=== PATIENT | male | born 1950 | race African-American/Black ===

== ENCOUNTER 2017-09-19 18:50 | Emergency (ER) | payer OTHER, MEDICAID ==
[~2017-09-19] VITALS: Ht 185.4 cm; Wt 125.0 kg
[~2017-09-19 18:50] MED LIST: AMLO10 PO; ASPI325T PO; BACT800T5 PO; Cyclobenzaprine Hcl PO; HYDR-2768 PO; LISI-366 PO; LORA-392 PO; PRAV20 PO
[2017-09-19 18:52] VITALS: BP 169/86; PULSE 97; RESP 16; TEMP 98.4; O2SAT 97
[2017-09-19] MEDS ORDERED: LISI40TA PO (19:44)
[2017-09-19] MEDS ORDERED: SIMV40TA PO (19:44)
[2017-09-19] MEDS ORDERED: AMLO10 PO (19:44)
[2017-09-19] MEDS ORDERED: ASPI-183 PO (19:44)
[2017-09-19] MEDS ORDERED: METF1000 PO (19:44)
--- NOTE | 2017-09-19 19:46 | RADRPT ---
EXAM DATE/TIME: 09/19/2017 19:31 [place] COMPARISON: No previous studies available for comparison. INDICATIONS : Shortness of breath. MEDICAL HISTORY : Myocardial infarction. SURGICAL HISTORY : None. ENCOUNTER: Initial ACUITY: 2 days PAIN SCORE: 0/10 LOCATION: chest FINDINGS: Portable AP view the chest demonstrates a normal-sized cardiac silhouette with tortuous descending th oracic aorta. No pleural effusion, airspace consolidation, or pneumothorax is identified. Bones and s oft tissues demonstrate no acute finding. EKG lines overlie the patient. CONCLUSION: No acute cardiopulmonary abnormality is identified. Ata James MD on September 19, 2017 at 19:43 Board Certified Radiologist. This report was verified electronically.
--- NOTE | 2017-09-19 19:59 | PD ---
HPI Chief Complaint: Respiratory Distress Time Seen by Provider: 19:47 Travel History International Travel<30 days: No Contact w/Intl Traveler<30days: No Traveled to known affect area: No History of Present Illness HPI 67-year-old male complains chest discomfort and shortness of breath. Patient states that the symptoms started 2 days ago. Patient states that the chest discomfort is pressure pain across the anterior chest. Patient denies any pain radiation. Patient denies palpitation nausea or diaphoresis. Patient denies any coughing congestion fever chills. Patient states that the chest discomfort is not associated with exertion. Patient has history of ND in 1999. Status post CVA 2013. Patient has history hypertension, diabetes, hyperlipidemia. Patient quit smoking in 2013. Patient has family history of heart disease. Patient states that he takes aspirin 325 mg every 2-3 days. Last aspirin was yesterday. On a scale of 1-10 chest pain is a 4. PFSH Past Medical History Arthritis: No Autoimmune Disease: No Anxiety: Yes Depression: No Heart Rhythm Problems: No Cancer: No Cardiac Catheterization: Yes (1999) Cardiovascular Problems: Yes High Cholesterol: No Chest Pain: Yes (HEART ATTACK IN 1999) Congestive Heart Failure: Yes Cerebrovascular Accident: Yes (2013) Diabetes: Yes (PT STATES BORDERLINE POSSIBLE) Patient Takes Glucophage: Yes Diminished Hearing: No Endocrine: No Genitourinary: No Headaches: Yes (LATELY) Hypertension: Yes Immune Disorder: No Musculoskeletal: No Neurologic: Yes Psychiatric: Yes Reproductive: No Respiratory: No Migraines: No Myocardial Infarction: Yes (1999) Seizures: No Past Surgical History Abdominal Surgery: No Coronary Artery Bypass Graft: No Ear Surgery: No Endocrine Surgery: No Eye Surgery: No Genitourinary Surgery: No Gynecologic Surgery: No Oral Surgery: No Thoracic Surgery: No Other Surgery: Yes Social History Alcohol Use: Yes (WINE OCC) Tobacco Use: Yes (PT STS 2 BLACK AND MILDS PER DAY/PIPE) Substance Use: No Allergies-Medications (Allergen,Severity, Reaction): Coded Allergies: No Known Allergies (Verified Adverse Reaction, Unknown, 09/19/17) Reported Meds & Prescriptions Reported Meds & Active Scripts Active Reported Metformin (Metformin HCl) 1,000 Mg Tab 1,000 Mg PO BIDPC Simvastatin 40 Mg Tab 40 Mg PO HS Lisinopril 40 Mg Tab 40 Mg PO DAILY Aspirin 325 Mg Tab 325 Mg PO EVERY OTHER DAY Norvasc (Amlodipine Besylate) 10 Mg Tab 10 Mg PO DAILY Review of Systems General / Constitutional: No: Fever Eyes: No: Visual changes HENT: No: Headaches Cardiovascular: Positive: Chest Pain or Discomfort Respiratory: Positive: Shortness of Breath Gastrointestinal: No: Abdominal Pain Genitourinary: No: Dysuria Musculoskeletal: No: Pain Skin: No Rash Neurologic: No: Weakness Psychiatric: No: Depression Endocrine: No: Polydipsia Hematologic/Lymphatic: No: Easy Bruising Physical Exam Narrative GENERAL: Well-nourished, well-developed patient. SKIN: Focused skin assessment warm/dry. HEAD: Normocephalic. EYES: No scleral icterus. No injection or drainage. NECK: Supple, trachea midline. No JVD or lymphadenopathy. CARDIOVASCULAR: Regular rate and rhythm without murmurs, gallops, or rubs. RESPIRATORY: Breath sounds equal bilaterally. No accessory muscle use. GASTROINTESTINAL: Abdomen soft, non-tender, nondistended. MUSCULOSKELETAL: No cyanosis, or edema. BACK: Nontender without obvious deformity. No CVA tenderness. Neurologic exam normal. Data Data Last Documented VS Vital Signs Date Time Temp Pulse Resp B/P (MAP) Pulse Ox O2 Delivery O2 Flow Rate FiO2 09/19/17 18:52 98.4 97 16 169/86 (113) 97 Orders Orders Chest, Single Ap (09/19/17 ) Electrocardiogram (09/19/17 ) Complete Blood Count With Diff (09/19/17 19:21) Basic Metabolic Panel (Bmp) (09/19/17 19:21) Creatine Kinase (Cpk) (09/19/17 19:54) Troponin I (09/19/17 19:54) Prothrombin Time / Inr (Pt) (09/19/17 19:54) Act Partial Throm Time (Ptt) (09/19/17 19:54) Iv Access Insert/Monitor (09/19/17 19:54) Ecg Monitoring (09/19/17 19:54) Oximetry (09/19/17 19:54) Aspirin (Aspirin) (09/19/17 20:00) CKMB (09/19/17 19:40) CKMB% (09/19/17 19:40) Labs Laboratory Tests Test 09/19/17 19:40 09/19/17 20:00 White Blood Count 6.3 TH/MM3 Red Blood Count 4.84 MIL/MM3 Hemoglobin 14.5 GM/DL Hematocrit 43.0 % Mean Corpuscular Volume 88.8 FL Mean Corpuscular Hemoglobin 29.9 PG Mean Corpuscular Hemoglobin Concent 33.7 % Red Cell Distribution Width 13.4 % Platelet Count 133 TH/MM3 Mean Platelet Volume 9.9 FL Neutrophils (%) (Auto) 53.7 % Lymphocytes (%) (Auto) 35.9 % Monocytes (%) (Auto) 6.7 % Eosinophils (%) (Auto) 3.4 % Basophils (%) (Auto) 0.3 % Neutrophils # (Auto) 3.4 TH/MM3 Lymphocytes # (Auto) 2.3 TH/MM3 Monocytes # (Auto) 0.4 TH/MM3 Eosinophils # (Auto) 0.2 TH/MM3 Basophils # (Auto) 0.0 TH/MM3 CBC Comment DIFF FINAL Differential Comment Blood Urea Nitrogen 13 MG/DL Creatinine 1.08 MG/DL Random Glucose 133 MG/DL Calcium Level 9.2 MG/DL Sodium Level 139 MEQ/L Potassium Level 4.1 MEQ/L Chloride Level 105 MEQ/L Carbon Dioxide Level 26.6 MEQ/L Anion Gap 7 MEQ/L Estimat Glomerular Filtration Rate 83 ML/MIN Total Creatine Kinase 460 U/L Creatine Kinase MB 2.1 NG/ML Creatine Kinase MB % 0.5 % Troponin I 0.05 NG/ML Prothrombin Time 9.8 SEC Prothromb Time International Ratio 1.0 RATIO Activated Partial Thromboplast Time 24.6 SEC MDM Medical Decision Making Medical Screen Exam Complete: Yes Emergency Medical Condition: Yes Interpretation(s) 2052 PM. Chest x-ray shows no acute process. CBC within normal limits. 21:57 PM. Cardiac enzymes are normal. Differential Diagnosis Differential diagnosis including musculoskeletal, angina, ND, PE, pneumothorax. Narrative Course 67-year-old male with chest pain and shortness of breath. Aspirin 325 mg p.o. given. Patient was advised to be admitted to the chest pain center for further workup. Patient refused admission. Patient wants to go home and follow up with his doctor. Diagnosis Primary Impression: Chest pain Qualified Codes: R07.9 - Chest pain, unspecified Patient Instructions: General Instructions Additional Instructions: Aspirin daily. Follow-up local physician. Return immediately if increasing chest pain shortness of breath. Med/Other Pt SpecificInfo: No Change to Meds Disposition: 01 DISCHARGE HOME Condition: Stable Kieran Luo MD Sep 19, 2017 19:59
[2017-09-19] MEDS ORDERED: ASPIRIN 325 MG TAB PO ONE (20:00)
[2017-09-19 20:03] LABS: AUTOMATED NEUTROPHIL # 3.4 TH/MM3 (1.8-7.7); BASOPHIL % 0.3 % (0.0-2.0); EOSINOPHIL # 0.2 TH/MM3 (0-0.4); EOSINOPHIL % 3.4 % (0.0-4.0); HEMOGLOBIN 14.5 GM/DL (13.0-17.0); LYMPH % 35.9 % (9.0-44.0); LYMPHOCYTE # 2.3 TH/MM3 (1.0-4.8); MEAN CELL VOLUME 88.8 FL (80.0-100.0); MEAN CORPUSCULAR HEMOGLOBIN 29.9 PG (27.0-34.0); MEAN CORPUSCULAR HGB CONC 33.7 % (32.0-36.0); MEAN PLATELET VOLUME 9.9 FL (7.0-11.0); MONO % 6.7 % (0.0-8.0); MONOCYTE # 0.4 TH/MM3 (0-0.9); NEUT % 53.7 % (16.0-70.0); PLATELET COUNT 133 TH/MM3 (150-450); RED BLOOD COUNT 4.84 MIL/MM3 (4.50-5.90); RED CELL DISTRIBUTION WIDTH 13.4 % (11.6-17.2); WHITE BLOOD COUNT 6.3 TH/MM3 (4.0-11.0)
[2017-09-19 20:14] LABS: BICARBONATE 26.6 MEQ/L (21.0-32.0); CALCIUM 9.2 MG/DL (8.5-10.1); CREATININE 1.08 MG/DL (0.60-1.30)
[2017-09-19 20:37] LABS: PROTHROMBIN TIME - PATIENT 9.8 SEC (9.8-11.6)
[2017-09-19 21:34] LABS: TROPONIN I 0.05 NG/ML (0.02-0.05)
--- NOTE | 2017-09-20 15:18 | EKG ---
Date Performed: 09/19/2017 Time Performed: 19:49:53 PTAGE: 67 years EKG: Sinus rhythm POSSIBLE LEFT ATRIAL ENLARGEMENT BORDERLINE LEFT AXIS DEVIATION POSSIBLE LEFT VENTRICULAR HYPERTROPH Y NONSPECIFIC T-WAVE ABNORMALITY Since previous tracing, no significant change noted ABNORMAL ECG PREVIOUS TRACING : 03/18/2014 19.47 DOCTOR: Corey Valdez Interpretating Date/Time 09/20/2017 15:17:14
== END 2017-09-19 22:21 | disposition home or self-care (01) ==
LOC: NEPD 18:50
DX: R07.9 Chest pain, unspecified (principal); R06.02 Shortness of breath; R94.31 Abnormal electrocardiogram [ECG] [EKG]; F41.9 Anxiety disorder, unspecified; I11.0 Hypertensive heart disease with heart failure; I50.9 Heart failure, unspecified; E11.9 Type 2 diabetes mellitus without complications; I25.2 Old myocardial infarction; Z86.73 Personal history of transient ischemic attack (TIA), and cerebral infarction without residual deficits; F17.200 Nicotine dependence, unspecified, uncomplicated
CPT/HCPCS: 71045; 80048; 82550; 82552; 84484; 85025; 85610; 85730; 93005; 99285